=== PATIENT | male | born 1950 | race Caucasian/White ===

== ENCOUNTER 2020-04-04 06:06 | Observation (INO) ==
--- NOTE | 2020-03-27 10:26 | History & Physical Report ---
Date of Service March 27, 2020 date of surgery: 04/04/20 Procedure: Right Total Knee Arthroplasty Assessment & Plan (1) Arthritis of right knee: Risks and benefits of procedure discussed in detail today, patient would like to proceed with a Right total knee replacement at [facility] as scheduled. will obtain medical clearance from Dr Linares prior to surgery as well as obtain PATs at [facility]. Will place on ASA 81mg po bid x 1 month post op, f/u 2 weeks post op for routine post-operative care and x-ray, sooner if having any problems. will make arrangements for HHPT at the time of discharge. At this point in time, has failed conservative measures and would like to proceed with surgical intervention. The risks and benefits have been discussed including, but not limited to, risk of infection, nerve injury, stiffness, loss of motion, failure to improve, etc. Reasonable outcomes and options of treatment were discussed. An explanation of appropriate alternatives to the procedure that may be advantageous were discussed and their risks and benefits, as well as the risks and benefits of not proceeding with treatment. I offered to answer any additional inquiries concerning the treatment involved. All the patient's questions were answered. The patient is agreeable, understanding of the treatment plan and alternatives, and wishes to proceed with the treatment plan. History of Present Illness Chief Complaint: Right knee pain Primary Care Provider: Rupesh Linares Mr Tenorio is a 69 year old male who is here for a follow up of right knee pain, presents for pre-op eval prior to a Right total knee replacement. He presents with pain and stiffness on the right side. He states that the symptoms have been chronic non-traumatic and his symptoms occur constantly with intermittent worsening. Currently the patient states that the symptoms are moderate-severe. The pain is described as aching, sharp, shooting and throbbing. He rates his current pain as 5/10. The symptoms are aggravated by ascending stairs, daily activities, descending stairs, driving, exercise, first steps while awake, jumping, kneeling, repetitive activities, sleeping in any position, squatting, standing, walking and weight bearing. In addition to right knee pain the patient is also experiencing decreased mobility, difficulty bending, difficulty going to sleep, limping, nighttime awakening, pain, stiffness, tenderness and weakness. Prior NSAIDs include ibuprofen and Mobic. He has been treated with a corticosteroid injection on the right side. Patient has been treated with previous visco supplementation, Supartz series of 3 injections. Patient has had previous therapy and has had arthroscopic surgery. 12/18/17 Dr. Veroinca performed right knee arthroscopy with PMM, PLM, Chondroplasty and Aspiration popliteal cyst @ [facility]. Allergies Allergy/AdvReac Type Severity Reaction Status Date / Time No Known Allergies Allergy Verified 01/21/20 09:17 Home Medications Medication Instructions Recorded Confirmed Type omega-3 fatty acids-vitamin E 1 cap PO HS 01/21/20 01/21/20 History [Fish Oil] simvastatin 40 mg PO HS 01/21/20 01/21/20 History vitamin A-vitamin C-vit E-min 1 tab PO HS 01/21/20 01/21/20 History [Ocuvite] Past Med/Surg History Medical History High blood pressure "SOMETIMES" Hyperlipidemia Macular degeneration Osteoarthritis Surgical History History of colonoscopy History of herniorrhaphy ABDOMINAL HERNIA History of tonsillectomy and adenoidectomy History of tooth extraction Hx of vasectomy Family History Other No family history of adverse response to anesthesia Social History Smoking Status: Former smoker Second Hand Exposure: No; Hx Alcohol Use: Yes Alcohol type: beer Hx Substance Use: No Preferred Language: Belarusian Mechanical Maintenance Required: No Beliefs That Will Affect Care: None Current Living Situation: Alone Feels Safe at Home: Yes Assistive Devices: Glasses Review of Systems Review of Systems: All systems reviewed & are unremarkable except as noted in HPI & below Constitutional: no fever, no chills and no sweats Respiratory: no cough and no dyspnea Cardiovascular: no chest pain, no dyspnea and no orthopnea Gastrointestinal: no abdominal pain, no nausea and no vomiting Musculoskeletal: as per Subjective / HPI Physical Exam Physical Exam: Ht: 6ft Wt: 100.7kg BP: 162/84 Constitutional: WD/WN, vitals as above no acute distress Respiratory: normal respiratory effort, lungs clear to auscultation no respiratory distress, no labored breathing and does not use accessory muscles Cardiovascular: RRR, no murmur, no edema Gastrointestinal (Abdomen): normal bowel sounds, soft, nontender, no hepatosplenomegaly Musculoskeletal: Knee: + knee abnormal to inspection (Right Knee), + effusion (+1 effusion), + limited ROM of knee (ROM 0/3/110), + knee ROM with crepitation, + joint line tenderness (medial joint line) and + Kym's sign positive; no deformity, no skin erythema, no ecchymosis, no valgus laxity, no varus laxity, anterior drawer test negative, Dionicio's sign negative and pivot shift test negative Results & Data Results & Data ([facility]) Diagnostic Findings Right Knee X-ray: Right knee series showing advanced degenerative changes to the right knee, narrowing of the medial compartment and patello-femoral joint with patellar spurring noted, findings showing joint space narrowing of the medial compartment and patello-femoral joint, osteophyte formation and subchondral sclerosis noted. overall varus alignment. no acute bony pathology noted.
--- NOTE | 2020-03-30 09:54 | Anesthesiology Consultation ---
Date of Service March 30, 2020 Assessment & Plan (1) Encounter for pre-operative examination: Chart Review Chart Review: Acceptable Risk for Surgery (pending preop Covid testing ) and Patient NOT seen in Pre Admission Testing Pt admits to 3-4 beers daily Per nursing assessment 03/27/2020, patient denies any recent travel. Patient denies any known Covid infection in the past 90 days. No known Covid positive contacts or Covid related symptoms. Pt scheduled for preop Covid testing 03/28/20 at [place] with [facility] will await results. History Surgery Operation Date: 04/04/20 13:25 Proposed Procedures p Right Total Knee Arthroplasty - Lester Veronica DO Height/Weight Height: 6 ft Weight: 97.522 kg Allergies Allergy/AdvReac Type Severity Reaction Status Date / Time No Known Allergies Allergy Verified 03/27/20 10:45 Medications Home Medications Medication Instructions Recorded Confirmed Last Taken omega-3 fatty acids-vitamin E 1 cap PO HS 01/21/20 03/27/20 Unknown [Fish Oil] simvastatin 40 mg PO HS 01/21/20 03/27/20 Unknown vitamin A-vitamin C-vit E-min 1 tab PO HS 01/21/20 03/27/20 Unknown [Ocuvite] lisinopril 20 mg PO QAM 03/27/20 03/27/20 Unknown Past Medical History Medical History High blood pressure Hyperlipidemia Macular degeneration Osteoarthritis Past Family History Family History Other No family history of adverse response to anesthesia Past Surgical History Surgical History History of colonoscopy History of herniorrhaphy ABDOMINAL HERNIA History of tonsillectomy and adenoidectomy History of tooth extraction Hx of vasectomy Social History Smoking Status: Former smoker tobacco type: cigarettes Do You Dip or Chew Tobacco: No Smoking End Date: 40 YRS AGO Hx Alcohol Use: Yes Alcohol type: beer alcohol intake frequency: 3 or more drinks per day Alcohol Intake Frequency Comment: 3-4 BEERS PER DAY Hx Substance Use: No substance use type: does not use Testing Laboratory Results 03/27/20= WBC: 5.8 H/H: 15.2/44.9 PLATELETS: 261 SODIUM: 137 POTASSIUM: 4.7 CHLORIDE: 103 CO2: 24 BUN: 14 CREATININE: 0.9 GLUCOSE: 100 HGB A1C: 5.5 PT: 12.9 PTT: 33.0 INR: 1.0 UA: Negative Electrocardiogram Date: 01/21/20 Findings: + SB @ (59bpm) Chest X-Ray Date: 01/21/20 Findings: + NAD
[~2020-04-04 06:06] MED LIST: ACETAMINOPHEN 500 MG TAB PO SCH; CeleBREX 200 MG CAP PO SCH; FAMOTIDINE 20 MG TAB PO SCH; GABAPENTIN 300 MG CAP PO SCH; LR 500ML BOLUS, THEN 15ML/HR IV SCH; METOCLOPRAMIDE HCL 10 MG TABLET PO SCH; ROPIVACAINE 0.5% HCL/PF 150 MG, BUPIVACAINE 0.75% MPF 20 ML, EPINEPHrine 30MG/30ML (OR ... INFIL SCH; TRANEXAMIC ACID 1,000 MG **IV Intra-op IV SCH; TRANEXAMIC ACID 1,000 MG **IV Pre-op IV SCH; ceFAZolin 2000MG 2,000 MG/15 ML SYR IV SCH; dexAMETHasone 4 MG TAB PO SCH
--- NOTE | 2020-04-04 07:23 | History & Physical Bridge Note ---
Date of Service April 04, 2020 History & Physical Bridge Note I have examined the patient, reviewed the History & Physical and in the interval since the performance of the History & Physical I have noted the following changes of clinical significance: no changes noted
[2020-04-04] MEDS ORDERED: BUPIVACAINE 0.5 % 5 MG/1 ML PF 10ML VIAL ONE (07:29)
[2020-04-04] MEDS ORDERED: EPINEPHrine INJ 1 MG/ML AMP ONE (07:29)
[2020-04-04] MEDS ORDERED: ROPIVACAINE 0.5% 5 MG/ML 30 ML VIAL ONE (07:29)
[2020-04-04] MEDS ORDERED: LIDOCAINE HCL 2% 2 ML VIAL/AMP(20MG/ML) INFIL ONE (07:45)
[2020-04-04] MEDS ORDERED: DEXAMETHASONE SOD INJ 4 MG/ML VIAL ONE (07:45)
[2020-04-04] MEDS ORDERED: GLYCOPYRROLATE 0.2 MG/ML VIAL ONE (07:45)
[2020-04-04] MEDS ORDERED: ONDANSETRON INJ 2 MG/ML 2 ML VIAL ONE (07:45)
[2020-04-04] MEDS ORDERED: PROPOFOL IV EMULSION 10 MG/ML 20 ML VIAL IV ONE ×2 (07:45→09:21)
[2020-04-04] MEDS ORDERED: KETAMINE 50 MG/5 ML SYRINGE ONE (07:46)
[2020-04-04] MEDS ORDERED: MIDAZOLAM HCL 1 MG/ML 2ML VIAL ONE (07:46)
[2020-04-04] MEDS ORDERED: MEPERIDINE HCL 25 MG/ML CARP/VIAL IV PRN (07:55)
[2020-04-04] MEDS ORDERED: LABETALOL HCL IV 5 MG/ML 20ML IV PRN (07:55)
[2020-04-04] MEDS ORDERED: fentaNYL citrate 100 MCG/2 ML VIAL IV PRN (07:55)
[2020-04-04] MEDS ORDERED: PHENYLEPHRINE 100MCG/ML 5ML SYR IV PRN (07:55)
[2020-04-04] MEDS ORDERED: ONDANSETRON INJ 2 MG/ML 2 ML VIAL IV PRN ×2 (07:55→11:34)
[2020-04-04] MEDS ORDERED: HYDROmorphone INJ 1 MG/ML SYRINGE IV PRN ×2 (07:55→11:34)
[2020-04-04] MEDS ORDERED: ATROPINE SULFATE 0.1 MG/ML 10ML SYR IV PRN (07:55)
[2020-04-04] MEDS ORDERED: ePHEDrine sulfate 50 MG/ML AMP IV PRN (07:55)
[2020-04-04] MEDS ORDERED: BACITRACIN INJ 50,000 UNIT VIAL ONE (08:21)
[2020-04-04] MEDS ORDERED: ORTHO JOINT ANESTHETIC ONE (08:21)
[2020-04-04] MEDS ORDERED: KETOROLAC 30 MG/ML VIAL ONE (08:49)
--- NOTE | 2020-04-04 09:39 | Operative Report ---
Post Operative Report Pre & Post Diagnosis Operation Date: 04/04/20 09:05 Pre-Op Diagnosis: Right Knee Osteoarthritis Post-Op Diagnosis: Right Knee Osteoarthritis I identified the patient and participated in the time-out.: Yes Procedure Operation Date: 04/04/20 09:05 Actual Procedures p Right Total Knee Arthroplasty(Right) utilizing [email or web address] journey 2 patient matched total knee arthroplasty size 7 femur 7 tibia 13 polyethylene 38 oval patella- Lester Veronica DO Surgeon Lester Veronica DO [employer] Jim VILLAGOMEZ Estimated Blood Loss 5 Findings Consistent with Post-Op Diagnosis Patient presents with severe end-stage tricompartmental degenerative joint disease of the right knee with subchondral sclerosis marginal osteophytes eburnated [id number] varus alignment moderate to large effusion Specimens Bone and cartilage Drains Medium bore Hemovac Anesthesia Type MAC Spinal Regional Disposition Accompanied Patient To Recovery: No Disposition: Recovery Room Indications Patient presents with severe end-stage DJD of the right knee after failed attempted conservative management clinic physical therapy anti-inflammatories relative rest activity modification corticosteroid injections viscosupplementation the above intraoperative findings were noted Description of Procedure After proper prepping and draping of the Right lower extremity anterior midline incision was made over the region of the extensor extensor mechanism after meticulous hemostasis was obtained and maintained in subcutaneous tissues a medial parapatellar incision was made The patella was subluxed lateralward the medial lateral gutter were cleaned from any hypertrophic synovitis and scar tissue of the distal femoral block was placed and the distal femoral osteotomy cut was made subsequently the chamfers anterior and posterior osteotomy cuts were made utilizing the 4-in-1 block the tibia was subsequently subluxed ant eriorward medial and ateral meniscal remnants were excised in their entirety remnants of the anterior and posterior cruciate ligaments were excised in their entirety excellent exposure of the proximal tibia was obtained the tibial osteotomy guide was placed on the proximal tibial osteotomy cut was made once again the knee was irrigated with copious amounts of sterile saline solution the patella was subsequently everted lateralward thickened scar tissue around the patella was removed the patella was subsequently cut utilizing a freehand technique and was drilled prepared for final preparation and placement of patella socially flexion-extension gaps were checked and the equal and symmetric trials were placed to the appropriate femoral and tibial trials with poly-spacer being placed for equal flexion and extension gaps and full range of motion including extension to 0 and flexion to 140 the trial components after having been taken to recovery range of motion was subsequently removed meticulous hemostasis was obtained and maintained subsequently a knee block injection of joint cocktail including ropivacaine 0.5% 150 mg. Bupivacaine 0.5% epinephrine 1-200,030 mL's toradol 30 mg dexamethasone 4 mg ketamine 10 mg clonidine 100 micrograms normal saline solution 30 mg was infiltrated into the soft tissues of the posterior knee medial lateral gutters and periosteal synovium special at tention was paid to protect neurovascular structures at all times subsequently trial components having been removed the knee was irrigated with sterile saline solution. debris was removed the proximal tibia was subsequently prepared and was made ready for the placement of the tibial component tibial component was also cemented and tamped into position the femoral component was subsequently placed and cemented in the position the patellar component was subsequently cemented in position because hemostasis once again obtained and maintained wound having been thoroughly irrigated with debridement and debridement lavage was performed as well as a medial parapatellar incision closed with #1 Vicryl in interrupted fashion subcutaneous was closed with #2 Vicryl skin was closed with skin clips. PA-C was necessary for prepping and drapping as well as wound closure of deep fascia Sub cutaneous tissue and skin and was necessary for the case. A sterile compressive dressing was placed patient was taken to recovery in stable condition of report dictated by Jeremías I attest to the content of the Intraoperative Record and any orders documented therein. Any exceptions are noted below. I attest to the content of the Intraoperative Record and any orders documented therein. Any exceptions are noted below.
[2020-04-04] MEDS ORDERED: METOPROLOL TARTRATE 1 MG/ML VIAL IV STA (10:33)
[2020-04-04] MEDS ORDERED: METOPROLOL TARTRATE 1 MG/ML VIAL IV ONE (10:34)
--- NOTE | 2020-04-04 10:58 | XRay Report ---
XR knee RT 1 or 2V routine HISTORY: 69 years-old Male Surgical Post Op right knee total joint arthroplasty COMPARISON: None TECHNIQUE: 2 views of the right knee FINDINGS: Right knee total joint arthroplasty and patella resurfacing. Expected postoperative soft tissue swell ing and deep tissue air with surgical drainage catheter. No acute fracture, malalignment or unexpecte d opaque foreign body. Arterial calcifications. IMPRESSION: Right knee total joint arthroplasty and patellar resurfacing with expected postoperative changes. ACT 112: Negative or not required by law. The above report was generated using voice recognition software. It may contain grammatical, syntax o r spelling errors. Electronically signed by: Cody Unger M.D. 04/04/2020 10:56 AM
--- NOTE | 2020-04-04 11:09 | Anesthesiology Progress Note ---
Date of Service April 04, 2020 Anesthesia Post Procedure Vital Signs Vital Signs: Temp Pulse Pulse Pulse Resp BP BP 04/04/20 11:05 36.5 C 85 19 04/04/20 10:55 85 19 04/04/20 10:45 84 19 04/04/20 10:37 102 H 117/69 04/04/20 10:35 102 H 18 04/04/20 10:25 107 H 16 04/04/20 10:17 36.8 C 106 H 16 04/04/20 07:28 69 18 153/85 H 04/04/20 06:29 36.4 C L 65 18 170/92 H BP Pulse Ox 04/04/20 11:05 123/82 98 04/04/20 10:55 125/73 97 04/04/20 10:45 122/79 96 04/04/20 10:37 04/04/20 10:35 117/69 97 04/04/20 10:25 105/52 L 97 04/04/20 10:17 92/72 L 98 04/04/20 07:28 97 04/04/20 06:29 96 Transfer of Care Handoff Completed per policy Notes Mental Status: alert / awake / arousable Patient Amnestic to Procedure: Yes Nausea / Vomiting: adequately controlled Pain: adequately controlled Airway Patency, RR, SpO2: stable & adequate BP & HR: stable & adequate Hydration State: stable & adequate Neuraxial Anesthesia: was administered and sensory block is resolving Anesthetic Complications: no major complications apparent and Pt Satisfied with anesthetic care
[2020-04-04] MEDS ORDERED: diphenhydrAMINE Capsule 25 MG CAP PO PRN (11:34)
[2020-04-04] MEDS ORDERED: bisacodyL 10 MG SUPP PR PRN (11:34)
[2020-04-04] MEDS ORDERED: NALOXONE HCL 0.4 MG/1 ML VIAL/CARP IV PRN (11:34)
[2020-04-04] MEDS ORDERED: METOCLOPRAMIDE HCL INJ 5 MG/ML 2 ML VIAL IV PRN (11:34)
[2020-04-04] MEDS ORDERED: SODIUM CHLORIDE 0.9% 1000ML 1,000 ML IV SCH (11:34)
[2020-04-04] MEDS ORDERED: MAGNESIUM HYDROXIDE SUSP 30 ML UDC PO PRN (11:34)
[2020-04-04] MEDS ORDERED: oxyCODONE HCL IR 5 MG TAB (IMMEDIATE RELEASE) PO PRN (11:34)
[2020-04-04] MEDS: KETOROLAC TROMETHAMINE 15 MG/ML VIAL IV SCH ×2 (13:32→19:42)
[2020-04-04] MEDS: ACETAMINOPHEN 500 MG TAB PO SCH ×2 (13:32→22:06)
[2020-04-04] MEDS: ceFAZolin 2000MG 2,000 MG/15 ML SYR IV SCH ×2 (15:47→23:03)
[2020-04-04] MEDS ORDERED: Scopolamine CHECK PATCH PLACEMENT SCH (16:00)
[2020-04-04] MEDS ORDERED: NURSING DECISION MEDICATION ONE (18:23)
[2020-04-04] MEDS ORDERED: COUGH DROP (SUGAR FREE) LOZ 24 LOZ/1 BOX BUCCAL PRN (18:33)
[2020-04-04] MEDS: ASPIRIN 81 MG ECTAB PO SCH (19:48)
[2020-04-04] MEDS: DOCUSATE SODIUM 100 MG CAP PO SCH (19:48)
[2020-04-04] MEDS ORDERED: NON-FORMULARY MEDICATION (Vitamin A-Vitamin C-Vit E-Min Tablet) PO SCH (21:00)
[2020-04-04] MEDS ORDERED: SIMVASTATIN 40 MG TAB PO SCH (21:00)
[2020-04-04] MEDS ORDERED: SENNA 8.6 MG TAB PO SCH (21:00)
[2020-04-05] MEDS: KETOROLAC TROMETHAMINE 15 MG/ML VIAL IV SCH ×2 (03:26→08:44)
[2020-04-05 05:32] LABS: Hematocrit (blood only) 33.6 % (42-52); Hemoglobin 11.8 g/dL (14.0-18.0); Mean Corpuscular Hemoglobin 31.5 pg (25-34); Mean Corpuscular Hgb Conc 35.1 g/dL (32-36); Mean Corpuscular Volume 89.6 fL (80-100); Mean Platelet Volume 8.9 fL (7.4-10.4); Platelet Count 196 K/uL (130-400); RDW Coefficient of Variation 13.8 % (11.5-14.5); RDW Standard Deviation 45.5 fL (36.4-46.3); Red Blood Count 3.75 M/uL (4.7-6.1); White Blood Count 10.57 K/uL (4.8-10.8)
[2020-04-05 06:03] LABS: BUN Creatinine Ratio 20.7 (10-20); Calcium 8.3 mg/dl (8.5-10.1); Creatinine Clr Calc Pharmacy 63.8 ml/min; Est GFR (African American) 63.6; Est GFR (Non-African American) 54.9; Potassium 4.3 mmol/L (3.5-5.1)
[2020-04-05] MEDS: ACETAMINOPHEN 500 MG TAB PO SCH (06:37)
--- NOTE | 2020-04-05 07:59 | Anesthesiology Progress Note ---
Date of Service April 05, 2020 Anesthesia Post Procedure Vital Signs Vital Signs: Temp Pulse Pulse Pulse Resp BP BP 04/05/20 03:25 36.5 C 62 16 04/04/20 22:05 36.5 C 56 L 16 04/04/20 19:43 36.4 C L 59 L 16 126/68 04/04/20 15:05 36.4 C L 59 L 16 04/04/20 13:59 57 L 16 04/04/20 12:30 61 16 04/04/20 12:04 65 16 04/04/20 11:32 36.3 C L 68 16 04/04/20 11:05 36.5 C 85 19 04/04/20 10:55 85 19 04/04/20 10:45 84 19 04/04/20 10:37 102 H 117/69 04/04/20 10:35 102 H 18 04/04/20 10:25 107 H 16 04/04/20 10:17 36.8 C 106 H 16 BP Pulse Ox 04/05/20 03:25 123/73 96 04/04/20 22:05 131/76 96 04/04/20 19:43 95 04/04/20 15:05 136/74 96 04/04/20 13:59 123/75 96 04/04/20 12:30 129/75 97 04/04/20 12:04 111/76 96 04/04/20 11:32 122/77 96 04/04/20 11:05 123/82 98 04/04/20 10:55 125/73 97 04/04/20 10:45 122/79 96 04/04/20 10:37 04/04/20 10:35 117/69 97 04/04/20 10:25 105/52 L 97 04/04/20 10:17 92/72 L 98 Notes Mental Status: alert / awake / arousable and participated in evaluation Patient Amnestic to Procedure: Yes Nausea / Vomiting: see Notes below Pain: adequately controlled Airway Patency, RR, SpO2: stable & adequate BP & HR: stable & adequate Hydration State: stable & adequate Anesthetic Complications: no major complications apparent and Pt Satisfied with anesthetic care
--- NOTE | 2020-04-05 08:00 | Orthopedic Progress Note ---
Date of Service April 05, 2020 Assessment & Plan (1) History of total right knee replacement: POD #1 s/p Right TKA pt/ot dvt proph with [facility]/SCD/ASA plan for d/c home with home health PT, recheck after PT today for poss discharge. Admission and Anticipated Discharge Date Admission Date: April 04, 2020 Subjective POD #1 s/p Right TKA Review of Systems Constitutional: no fever, no chills and no sweats Respiratory: no cough and no dyspnea Cardiovascular: no chest pain and no dyspnea Gastrointestinal: no abdominal pain, no nausea and no vomiting Physical Exam Physical Exam: Vital Signs Temp 36.5 C 04/05/20 03:25 Pulse 62 04/05/20 03:25 Resp 16 04/05/20 03:25 BP 123/73 04/05/20 03:25 Pulse Ox 96 04/05/20 03:25 Intake & Output 04/04/20 04/05/20 04/05/20 18:59 06:59 18:59 Intake Total 3465 / 5503.333 2038.333 / 5503.33 3 Output Total 980 / 1630 650 / 1630 Balance 2485 / 3873.333 1388.333 / 3873.33 3 Weight 99.8 kg Intake: IV 990 / 1328.333 338.333 / 1328.333 Lr 1,000 ml @ 15 mls/hr IV . 500 / 500 Q24H [facility] Rx#:[id number] Nss 1000ML 1,0 00 ml @ 100 mls/ 290 / 628.333 338.333 / 628.333 hr IV .Q10H [facility] Rx#:[id number] TRANEXAMIC ACI D / 0.7% NACL 1, 200 / 200 000 mg In 100 ml @ 600 mls/hr IV TODAY@0600 [facility] Rx#:[id number] IV Perioperative 1600 / 1600 Oral 875 / 2575 1700 / 2575 Output: Urine 700 / 700 Drain Output 280 / 930 650 / 930 Right Knee Hem ovac 280 / 930 650 / 930 Other: # Unmeasured Voi ds 2 Constitutional: WD/WN, vitals as above no acute distress Musculoskeletal: Right Leg: NVDI, calf SNT, negative kale sign. DP palpable, able to wiggle toes/ankle movement without difficulty. dressing clean dry and intact. Vital Signs Temp 36.5 C 04/05/20 03:25 Pulse 62 04/05/20 03:25 Resp 16 04/05/20 03:25 BP 123/73 04/05/20 03:25 Pulse Ox 96 04/05/20 03:25 Intake & Output 04/04/20 04/05/20 04/05/20 18:59 06:59 18:59 Intake Total 3465 / 5503.333 2038.333 / 5503.33 3 Output Total 980 / 1630 650 / 1630 Balance 2485 / 3873.333 1388.333 / 3873.33 3 Weight 99.8 kg Intake: IV 990 / 1328.333 338.333 / 1328.333 Lr 1,000 ml @ 15 mls/hr IV . 500 / 500 Q24H [facility] Rx#:[id number] Nss 1000ML 1,0 00 ml @ 100 mls/ 290 / 628.333 338.333 / 628.333 hr IV .Q10H [facility] Rx#:[id number] TRANEXAMIC ACI D / 0.7% NACL 1, 200 / 200 000 mg In 100 ml @ 600 mls/hr IV TODAY@0600 [facility] Rx#:[id number] IV Perioperative 1600 / 1600 Oral 875 / 2575 1700 / 2575 Output: Urine 700 / 700 Drain Output 280 / 930 650 / 930 Right Knee Hem ovac 280 / 930 650 / 930 Other: # Unmeasured Voi ds 2 Results & Data ([facility]) Vital Signs (Past 12 Hours) Vital Signs Temp Pulse Resp BP Pulse Ox 04/05/20 03:25 36.5 C 62 16 123/73 96 04/04/20 22:05 36.5 C 56 L 16 131/76 96 Laboratory Results Laboratory Results WBC 10.57 K/uL (4.8-10.8) 04/05/20 05:23 RBC 3.75 M/uL (4.7-6.1) L 04/05/20 05:23 Hgb 11.8 g/dL (14.0-18.0) L 04/05/20 05:23 Hct 33.6 % (42-52) L 04/05/20 05:23 MCV 89.6 fL (80-100) 04/05/20 05:23 MCH 31.5 pg (25-34) 04/05/20 05:23 MCHC 35.1 g/dL (32-36) 04/05/20 05:23 RDW Std Deviation 45.5 fL (36.4-46.3) 04/05/20 05:23 RDW Coeff of Anshu 13.8 % (11.5-14.5) 04/05/20 05:23 Plt Count 196 K/uL (130-400) 04/05/20 05:23 MPV 8.9 fL (7.4-10.4) 04/05/20 05:23 Sodium 138 mmol/L (136-145) 04/05/20 05:23 Potassium 4.3 mmol/L (3.5-5.1) 04/05/20 05:23 Chloride 108 mmol/L (98-107) H 04/05/20 05:23 Carbon Dioxide 22 mmol/L (21-32) 04/05/20 05:23 Anion Gap 8.0 (3-11) 04/05/20 05:23 BUN 27 mg/dl (7-18) H 04/05/20 05:23 Creatinine 1.30 mg/dl (0.6-1.4) 04/05/20 05:23 Est Cr Clr Drug Dosing 63.8 ml/min 04/05/20 05:23 Est GFR ( Amer) 63.6 04/05/20 05:23 Est GFR (Non-Af Amer) 54.9 04/05/20 05:23 BUN/Creatinine Ratio 20.7 (10-20) H 04/05/20 05:23 Glucose 136 mg/dl (70-99) H 04/05/20 05:23 Calcium 8.3 mg/dl (8.5-10.1) L 04/05/20 05:23 Blood Type O Positive 04/04/20 06:37 Antibody Screen NEGATIVE 04/04/20 06:37 Diagnostic Findings XR knee RT 1 or 2V routine HISTORY: 69 years-old Male Surgical Post Op right knee total joint arthroplasty COMPARISON: None TECHNIQUE: 2 views of the right knee FINDINGS: Right knee total joint arthroplasty and patella resurfacing. Expected postoperative soft tissue swelling and deep tissue air with surgical drainage catheter. No acute fracture, malalignment or unexpected opaque foreign body. Arterial calcifications. IMPRESSION: Right knee total joint arthroplasty and patellar resurfacing with expected postoperative changes.
[2020-04-05] MEDS: DOCUSATE SODIUM 100 MG CAP PO SCH (08:44)
[2020-04-05] MEDS: ASPIRIN 81 MG ECTAB PO SCH (08:44)
[2020-04-05] MEDS ORDERED: MULTIVITAMIN TAB PO SCH (09:00)
[2020-04-05] MEDS ORDERED: lisinopril 40 MG TAB PO SCH (09:00)
[2020-04-05] MEDS ORDERED: CeleBREX 200 MG CAP PO SCH (21:00)
--- NOTE | 2020-04-06 12:10 | Discharge Summary ---
Date of Service date of discharge: April 05, 2020 date of admission: 04/04/20 Admission HPI Per Admitting Provider Mr Tenorio is a 69 year old male who is here for a follow up of right knee pain, presents for pre-op eval prior to a Right total knee replacement. He presents with pain and stiffness on the right side. He states that the symptoms have been chronic non-traumatic and his symptoms occur constantly with intermittent worsening. Currently the patient states that the symptoms are moderate-severe. The pain is described as aching, sharp, shooting and throbbing. He rates his current pain as 5/10. The symptoms are aggravated by ascending stairs, daily activities, descending stairs, driving, exercise, first steps while awake, jumping, kneeling, repetitive activities, sleeping in any position, squatting, standing, walking and weight bearing. In addition to right knee pain the patient is also experiencing decreased mobility, difficulty bending, difficulty going to sleep, limping, nighttime awakening, pain, stiffness, tenderness and weakness. Prior NSAIDs include ibuprofen and Mobic. He has been treated with a corticosteroid injection on the right side. Patient has been treated with previous visco supplementation, Supartz series of 3 injections. Patient has had previous therapy and has had arthroscopic surgery. 12/18/17 Dr. Veronica performed right knee arthroscopy with PMM, PLM, Chondroplasty and Aspiration popliteal cyst @ [facility]. Principal Diagnosis right knee osteoarthritis Discharge Exam Constitutional WD/WN, vitals as above no acute distress Musculoskeletal Right Knee: NVDI, calf SNT, negative kale sign. DP palpable, able to wiggle toes/ankle movement without difficulty. incision clean dry and intact. expected post-operative bruising noted. Discharge Data Allergies Allergy/AdvReac Type Severity Reaction Status Date / Time No Known Allergies Allergy Verified 04/04/20 06:27 Consultations 04/04/20 11:34 Consult Case Management - Discharge Planning Routine Procedures Performed Operation Date: 04/04/20 09:05 Actual Procedures p Right Total Knee Arthroplasty(Right) - Lester Veronica DO Ordered Studies 04/04/20 05:00 US - OR guided needle placemen Routine Hospital Course (1) History of total right knee replacement: POD #1 s/p Right TKA pt/ot dvt proph with BILLIE/SCD/ASA plan for d/c home with home health PT, recheck after PT today for poss discharge. Total Time Total Time Spent Total Time Spent (In Minutes): 20 Discharge Plan Discharge Items Patient Disposition: Home - Home Health Services Reason For Visit: Right Knee Osteoarthritis Discharge Diagnosis: right total knee replacement Activity: Per Instructions section Lifting: Wait until after follow-up appointment Weightbearing Comment: WBAT with walker Non-emergency contact: Surgeon Call non-emergency contact if: your symptoms worsen, your pain is not controlled, your temperature is above 101, your wound has increased redness, your wound has increased drainage and your wound pain has increased Follow-up/Referrals: Rupesh Linares M.D. [Primary Care Provider] - Diet: Regular Addtl Attending Provider Instructions: ACTIVITY RECOMMENDATIONS: SELF CARE INSTRUCTIONS AFTER TOTAL KNEE REPLACEMENT A. You may need to continue a physical therapy program after discharge from the hospital. There are several options available to you. Your doctor will assist you in selecting the best one for you. 1. An out-patient facility 2 to 3 times a week for therapy or home therapy. 2. Continue working on all exercises taught to you in the hospital. Your goals should be to increase bending of your knee to 90 degrees and beyond and to fully straighten your knee. B. You may progress at your own pace from walking with a walker or crutches to a cane; then to no assistive devices. C. Make walking a part of your daily routine. Be up as much as comfortable with rest periods throughout the day. Rest with leg elevation is very important. Use the ice wrap frequently for the first 3-4 weeks. D. There are no restrictions on activities. You may ride in a car, shop, participate in grant writer and all social activities. E. Wear the long elastic stockings (BILLIE hose) 20 hours a day for 2 weeks after surgery. They can be removed several times a day for laundering and for a bath. F. You may shower, no tub baths until cleared by your doctor. SPECIAL CARE INSTRUCTIONS: VERY IMPORTANT TO READ AND REVIEW A. There are a few signs you need to watch for after you are home. Call [facility] if you notice any of the followin. Increased severe knee pain. Some pain is expected especially when you exercise. 2. Increased swelling in your leg or knee; pain or swelling of the calf muscle in either lower leg. 3. Any fluid drainage from the incision. 4. Shortness of breath or chest pain. B. Please call [facility] at if you have any concerns or questions about your operation or recovery. The doctor or his nurse will return your call promptly. C. You must take antibiotics before dental work, bladder, bowel or other surgery. Your doctor will provide you with a permanent care to carry describing this precaution. IMPORTANT: * REMEMBER TO TAKE ASPIRIN, 81 MG, TWICE DAILY FOR 4 WEEKS UNLESS OTHERWISE DIRECTED. THIS IS YOUR BLOOD THINNER. * HIGH RISK PATIENTS MAY BE PRESCRIBED A STRONGER BLOOD THINNER. THIS WILL BE PROVIDED AT DISCHARGE. * CALL IF INCREASED PAIN, REDNESS, DRAINAGE OR FEVER GREATER THAT 101. * WEAR BILLIE HOSE 20 HOURS PER DAY FOR 2 WEEKS. * DERMABOND Prineo- This is a mesh tape dressing that is covered with glue. It should remain in place until the incision is properly healed, usually 10-14 days. This dressing is designed to naturally slough off. You may trim the excess mesh tape as it peels off. Incision may be briefly wet in a shower. Dry immediately by blotting with a clean, dry towel. Do not bath or swim until instructed by your doctor. Do not scratch, rub, or pick at the dressing. Do not apply any topical ointments or lotions until dressing is completely removed and/or instructed by your doctor. There may be a small piece of suture material at one end of your incision. Do not pull or trim this. If it is bothersome or catching on clothing, you may cover it with a band-aid. IF INCISION IS LEAKING THROUGH DRESSING, CALL THE OFFICE . FOLLOW UP VISIT: If appointment is not already scheduled: Please call [facility] to make a follow-up appointment for 2 weeks after your surgery at . Pending Studies at Discharge: No Stand-Alone Forms: [employer], Smoking Cessation Medications and DC Order Prescriptions: New celecoxib [Celebrex] 200 mg Capsule 200 mg PO BID 30 Days Qty: 60 RF: 0 aspirin 81 mg Tablet,Delayed Release (Dr/Ec) 81 mg PO BID 30 Days Qty: 60 RF: 0 acetaminophen 500 mg Tablet 1,000 mg PO Q8 21 Days Qty: 126 RF: 0 oxycodone 5 mg Tablet 5 - 10 mg PO Q6H PRN (Reason: pain) Qty: 30 RF: 0 docusate sodium 100 mg Capsule 100 mg PO BID 10 Days Qty: 20 RF: 0 cefadroxil 500 mg capsule 500 mg PO BID 10 Days Qty: 20 RF: 0 Continued simvastatin 40 mg Tablet 40 mg PO HS RF: 0 vitamin A-vitamin C-vit E-min Tablet 1 tab PO HS RF: 0 lisinopril 20 mg Tablet 40 mg PO QAM RF: 0 Discontinued Fish Oil 1,000 mg Capsule 1 cap PO HS RF: 0 Discharge Orders: Discharge Order (Routine); Ordered 04/05/20 Ordered By: Jim Ding/Other Patient Handouts: DVT Post Op Prevention, Discharge Instructions Caring for ... Admission Data Admit Date/Time: 04/04/20 10:23 Attending Provider: Lester Veronica Admit Provider: Lester Veronica Primary Care Provider: Rupesh Linares Other Providers: [facility] Other Interventions: Discharge Summary Assessment (RN) Last Done: 04/05/20 10:23
== END 2020-04-05 12:44 | disposition home health service (06) ==
LOC: ASU 06:06 → 3E 06:06